=== PATIENT | female | born 1985 | race Caucasian/White ===

== ENCOUNTER 2017-06-09 06:13 | Emergency (ER) | payer SELFPAY ==
[~2017-06-09] VITALS: Ht 162.6 cm; Wt 86.0 kg
[~2017-06-09 06:13] MED LIST: NAPR-260 PO; OMEP40CA3 PO; RANI150T9 PO
[2017-06-09 06:18] VITALS: Ht 162.6 cm; Wt 86.0 kg
[2017-06-09] MEDS ORDERED: LIDOCAINE/MYLANTA 40 ML BTL PO ONE (06:30)
[2017-06-09] MEDS ORDERED: FAMOTIDINE 20 MG TAB PO ONE (06:30)
[2017-06-09] MEDS ORDERED: FAMO-96 PO (07:23)
[2017-06-09] MEDS ORDERED: LORA-186 PO (07:24)
--- NOTE | 2017-06-09 09:09 | ERD ---
ER Documentation Chief Complaint Chief Complaint PT IN C/O CHEST DISCOMFORT. +PRODUCTIVE COUGH X 2 WEEKS. HPI This is a 31-year-old female presenting to the emergency department complaining of cough for the past 2 weeks. Patient presents today complaining of the localized midsternal chest pain that she describes as a heartburn. Patient states that she drank 5 beers last night and after it caused her to have the pain and mild shortness of breath. She denies any fevers. Denies taking any medications for this ROS All systems reviewed and are negative except as per history of present illness. Medications Home Meds Active Scripts Loratadine* (Claritin*) 10 Mg Tablet, 10 MG PO DAILY, #20 TAB Prov:RUPERTO DOUGHERTY PA-C 06/09/17 Famotidine* (Pepcid*) 20 Mg Tablet, 20 MG PO DAILY, #20 TAB Prov:RUPERTO DOUGHERTY PA-C 06/09/17 Naproxen* (Naprosyn*) 500 Mg Tablet, 500 MG PO BID Y for PAIN AND/OR INFLAMMATION, #30 TAB Prov:OMKAR CAM. TERRAZZO ROLLER 04/02/15 Ranitidine Hcl* (Zantac*) 150 Mg Tablet, 150 MG PO BID Y for epigastric pain, # 30 TAB Prov:OMKAR CAM. TERRAZZO ROLLER 04/02/15 Omeprazole* (Prilosec*) 40 Mg Capsule.dr, 40 MG PO DAILY for 14 Days, CAP Prov:OMKAR CAM. TERRAZZO ROLLER 04/02/15 Allergies Allergies: Coded Allergies: acetaminophen (Verified Allergy, Unknown, 04/02/15) PMhx/Soc Medical and Surgical Hx: pt denies Medical Hx, pt denies Surgical Hx Hx Alcohol Use: Yes Hx Substance Use: No Hx Tobacco Use: Yes Smoking Status: Current some day smoker Physical Exam Vitals Vital Signs Date Time Temp Pulse Resp B/P Pulse Ox O2 Delivery O2 Flow Rate FiO2 06/09/17 06:18 97.6 97 20 117/71 95 Physical Exam Const: Well-appearing, well-developed well-nourished no acute distress Head: Atraumatic Eyes: Normal Conjunctiva ENT: Normal External Ears, Nose and Mouth. Neck: Full range of motion..~ No meningismus. Resp: Clear to auscultation bilaterally Cardio: Regular rate and rhythm, no murmurs Abd: Soft, non tender, non distended. Normal bowel sounds Skin: No petechiae or rashes Back: No midline or flank tenderness Ext: No cyanosis, or edema Neur: Awake and alert Psych: Normal Mood and Affect Results 24 hrs Current Medications Medications (Trade) Dose Ordered Sig/Niecy Route PRN Reason Start Time Stop Time Status Last Admin Dose Admin Miscellaneous Medication (Gi Cocktail (2)) 40 ml ONCE ONCE PO 06/09/17 06:30 06/09/17 06:32 DC 06/09/17 06:43 Famotidine (Pepcid) 20 mg ONCE ONCE PO 06/09/17 06:30 06/09/17 06:32 DC 06/09/17 06:43 Procedures/MDM This is a 31-year-old female presenting to the emergency department complaining of mild chest pain, shortness of breath SP drinking 5 beers last night and cough for two weeks. EKG did not show evidence of STEMI. Patient likely was experiencing heartburn, she had relief with GI cocktail and Pepcid. Patient eloped before CXR EKG: read and signed off by myself and Rate/Rhythm: Normal Sinus Rhythm 86 bpm QRS, ST, T-waves: No changes consistent w/ acute ischemia Impression: No evidence of ischemia or arrhythmia\ Patient eloped and did not finish evaluation and treatment Departure Diagnosis: Primary Impression: Chest pain Additional Impression: Shortness of breath Condition: Stable Patient Instructions: Gerd (Adult), Epigastric Pain (Uncertain Cause) Additional Instructions: FOLLOW UP WITH YOUR PRIMARY CARE PHYSICIAN TOMORROW.Return to this facility if you are not improving as expected. Take all medicines as directed. Return to this facility if you are not improving as expected. RUPERTO DOUGHERTY PA-C Jun 09, 2017 09:09
== END 2017-06-09 10:45 | disposition home or self-care (01) ==
LOC: FTE 06:13
DX: R07.89 Other chest pain (principal); R06.02 Shortness of breath; F17.210 Nicotine dependence, cigarettes, uncomplicated
CPT/HCPCS: 93005

== ENCOUNTER 2018-05-06 21:52 | Emergency (ER) | END 2018-05-07 01:40 | disposition home or self-care (01) ==